=== PATIENT | female | born 1930 | race Caucasian/White ===

== ENCOUNTER 2020-11-10 10:50 | Emergency (ER) | payer OTHER, MEDICARE | END 2020-11-10 14:15 | disposition home or self-care (01) | LOC: ERS 10:50 | DX: S52.502A Unspecified fracture of the lower end of left radius, initial encounter for closed fracture (principal); W01.0XXA Fall on same level from slipping, tripping and stumbling without subsequent striking against object, initial encounter; F03.90 Unspecified dementia, unspecified severity, without behavioral disturbance, psychotic disturbance, mood disturbance, and anxiety; Y92.129 Unspecified place in nursing home as the place of occurrence of the external cause; Z79.1 Long term (current) use of non-steroidal anti-inflammatories (NSAID); Z79.899 Other long term (current) drug therapy ==

== ENCOUNTER 2020-11-25 20:58 | Inpatient (IN) | payer OTHER, MEDICARE, BC ==
[2020-11-25] MEDS ORDERED: Morphine 4 MG/ML VIAL ONE (21:50)
[2020-11-25 23:35] LABS: #Eosinphils 0.2 thou/uL (0.0-0.7); #Lymphocytes 1.1 thou/uL (1.20-3.40); #Monocytes 0.9 thou/uL (0.11-0.59); #Neutrophils 12.7 thou/uL (1.40-6.50); %Basophils 0.2 % (0.0-1.0); %Eosinophils 1.6 % (0.0-10.0); %Lymphocytes 7.2 % (21.0-51.0); %Neutrophils 85.1 % (42.0-75.0); Hemoglobin 8.3 g/dL (12.0-16.0); Mean Corpuscular HGB CONC 32.6 g/dL (32.0-36.0); Mean Corpuscular Hemoglobin 31.6 pg (27.0-31.0); Mean Corpuscular Volume 96.9 fL (78.0-98.0); Mean Platelet Volume 7.4 fL (7.4-10.4); Platelet Count 259 thou/uL (130-400); RBC Distribution Width 15.1 % (11.5-14.5); Red Blood Cell (RBC) Count 2.64 mill/uL (4.20-5.40); White Blood Cell (WBC) Count 14.9 thou/uL (4.8-10.8)
[2020-11-25 23:59] LABS: INR-International Normal Ratio 1.2; Prothrombin Time 15.1 sec (12.0-14.7)
[2020-11-26] LABS: PTT 33.3 sec (22.9-36.1)
[2020-11-26 00:02] LABS: ALT (SGPT) 11 U/L (8-55); AST (SGOT) 20 U/L (5-34); Albumin 3.3 g/dL (3.4-4.8); Alkaline Phosphatase 84 U/L (40-110); Anion Gap 13 mmol/L (10-20); BUN (Urea Nitrogen) 18 mg/dL (9.8-20.1); Bilirubin, Total 0.7 mg/dL (0.2-1.2); Calc. Creatinine Clearance 0 mL/min (70-130); Carbon Dioxide 29 mmol/L (23-31); Chloride 103 mmol/L (98-107); Glucose 132 mg/dL (83-110); Potassium 3.8 mmol/L (3.5-5.1); Protein, Total 6.3 g/dL (5.8-8.1); Sodium 141 mmol/L (136-145)
[2020-11-26] MEDS ORDERED: Cyclobenzaprine 10 MG TAB PO PRN (00:23)
[2020-11-26] MEDS ORDERED: traMADol HCl 50 MG TAB PO PRN (00:23)
[2020-11-26] MEDS ORDERED: Dextrose 5% in Water 1,000 ML IV PRN (00:26)
[2020-11-26] MEDS ORDERED: Dextrose 50% Abboject 50 ML SYRINGE SLOW IVP PRN (00:26)
[2020-11-26] MEDS ORDERED: Ondansetron PF 4 MG/2 ML Vial IVP PRN (00:26)
[2020-11-26] MEDS ORDERED: hydrALAZINE 20 MG/ML VIAL SLOW IVP PRN (00:26)
[2020-11-26] MEDS ORDERED: Sodium Chloride 0.9% 1,000 ML IV SCH (00:30)
[2020-11-26 00:38] LABS: SARS-CoV-2 NAA Rapid Test Not Detected (NotDetected)
[2020-11-26 06:08] LABS: #Eosinphils 0.1 thou/uL (0.0-0.7); #Lymphocytes 1.2 thou/uL (1.20-3.40); #Monocytes 0.8 thou/uL (0.11-0.59); #Neutrophils 8.2 thou/uL (1.40-6.50); %Basophils 0.1 % (0.0-1.0); %Eosinophils 0.8 % (0.0-10.0); %Lymphocytes 11.2 % (21.0-51.0); %Monocytes 7.5 % (0.0-10.0); %Neutrophils 80.3 % (42.0-75.0); Hemoglobin 8.2 g/dL (12.0-16.0); Mean Corpuscular HGB CONC 32.8 g/dL (32.0-36.0); Mean Corpuscular Volume 97.4 fL (78.0-98.0); Mean Platelet Volume 7.5 fL (7.4-10.4); Platelet Count 230 thou/uL (130-400); RBC Distribution Width 15.1 % (11.5-14.5); Red Blood Cell (RBC) Count 2.56 mill/uL (4.20-5.40); White Blood Cell (WBC) Count 10.2 thou/uL (4.8-10.8)
[2020-11-26] MEDS: traMADol HCl 50 MG TAB PO SCH ×3 (06:10→17:44)
[2020-11-26] MEDS: Acetaminophen 325 MG TAB PO SCH ×3 (06:10→17:44)
[2020-11-26 06:27] LABS: Anion Gap 11 mmol/L (10-20); BUN (Urea Nitrogen) 17 mg/dL (9.8-20.1); Calc. Creatinine Clearance 0 mL/min (70-130); Calcium 8.8 mg/dL (7.8-10.44); Carbon Dioxide 30 mmol/L (23-31); Chloride 104 mmol/L (98-107); Glucose 133 mg/dL (83-110); Sodium 141 mmol/L (136-145)
[2020-11-26] MEDS ORDERED: Famotidine/PF 20 mg/2ml Vial SLOW IVP SCH (09:00)
[2020-11-26] MEDS: Polyethylene Glycol 3350 17 GM Packet PO SCH (09:19)
[2020-11-26] MEDS: Senokot S 8.6-50 MG TAB PO SCH ×2 (09:20→22:12)
[2020-11-26] MEDS ORDERED: CEFAZOLIN 2 GM in Premix Bag 1 BAG IVPB SCH (09:30)
[2020-11-26] MEDS: Morphine 2 MG/ML VIAL SLOW IVP PRN ×2 (10:34→14:37)
[2020-11-26] MEDS ORDERED: Lorazepam 0.5 MG TAB PO PRN (16:47)
[2020-11-26] MEDS ORDERED: Cepastat Lozenges 1 LOZ PO PRN (17:12)
[2020-11-26] MEDS ORDERED: Phenylephrine 10 MG/ML VIAL ONE (18:42)
[2020-11-26] MEDS ORDERED: Lidocaine 2% Jelly 5 ML TUBE ONE (18:42)
[2020-11-26] MEDS ORDERED: Fentanyl 100 MCG/2 ML VIAL ONE (18:42)
[2020-11-26] MEDS ORDERED: PHENYLEPHRINE-NS 100 MCG/ML 10 ML SYRINGE ONE (19:16)
[2020-11-26] MEDS ORDERED: Dexamethasone 20 MG/5 ML VIAL ONE (19:16)
[2020-11-26] MEDS ORDERED: Ondansetron PF 4 MG/2 ML Vial ONE (19:16)
[2020-11-26] MEDS ORDERED: PROPOFOL 200 MG/20 ML VIAL ONE (19:16)
[2020-11-26] MEDS ORDERED: Lidocaine 1% PF 5 ML VIAL ONE (19:16)
[2020-11-26] MEDS ORDERED: Ondansetron HCl/PF 4 MG/2 ML Vial IVP PRN (19:38)
[2020-11-26] MEDS ORDERED: PACU-Morphine 4MG/ML VIAL SLOW IVP PRN (19:38)
[2020-11-26] MEDS ORDERED: Promethazine HCl 25 MG/ML VIAL IM PRN (19:38)
[2020-11-26] MEDS ORDERED: Promethazine HCl 25 MG/ML VIAL IVPB PRN (19:38)
[2020-11-27] MEDS: Acetaminophen 325 MG TAB PO SCH ×4 (01:20→18:47)
[2020-11-27] MEDS: traMADol HCl 50 MG TAB PO SCH ×4 (01:20→18:47)
[2020-11-27] MEDS: ceFAZolin Sodium/D5W 2 GM in Premix Bag 1 BAG IVPB SCH ×2 (01:25→08:56)
[2020-11-27 07:24] LABS: #Lymphocytes 0.8 thou/uL (1.20-3.40); #Monocytes 0.6 thou/uL (0.11-0.59); #Neutrophils 7.4 thou/uL (1.40-6.50); %Basophils 0.2 % (0.0-1.0); %Eosinophils 0.1 % (0.0-10.0); %Lymphocytes 8.6 % (21.0-51.0); %Monocytes 7.1 % (0.0-10.0); Hemoglobin 7.1 g/dL (12.0-16.0); Mean Corpuscular HGB CONC 32.4 g/dL (32.0-36.0); Mean Corpuscular Hemoglobin 31.8 pg (27.0-31.0); Mean Platelet Volume 8.3 fL (7.4-10.4); Platelet Count 189 thou/uL (130-400); RBC Distribution Width 14.9 % (11.5-14.5); Red Blood Cell (RBC) Count 2.24 mill/uL (4.20-5.40); White Blood Cell (WBC) Count 8.8 thou/uL (4.8-10.8)
[2020-11-27 07:49] LABS: Anion Gap 11 mmol/L (10-20); BUN (Urea Nitrogen) 21 mg/dL (9.8-20.1); Calc. Creatinine Clearance 0 mL/min (70-130); Calcium 8.2 mg/dL (7.8-10.44); Carbon Dioxide 29 mmol/L (23-31); Chloride 108 mmol/L (98-107); Glucose 129 mg/dL (83-110); Magnesium 2.3 mg/dL (1.6-2.6); Phosphorus 4.7 mg/dL (2.3-4.7); Potassium 4.4 mmol/L (3.5-5.1); Sodium 144 mmol/L (136-145)
[2020-11-27] MEDS: Ascorbic Acid 500 mg Chewable Tablet PO SCH ×2 (08:59→22:44)
[2020-11-27] MEDS: Ferrous Sulfate 325 MG TAB PO SCH ×2 (08:59→22:44)
[2020-11-27] MEDS: Senokot S 8.6-50 MG TAB PO SCH ×2 (09:04→22:44)
[2020-11-27] MEDS: Citalopram 20 MG TAB PO SCH (09:04)
[2020-11-27] MEDS: Polyethylene Glycol 3350 17 GM Packet PO SCH (09:04)
[2020-11-28] MEDS: Acetaminophen 325 MG TAB PO SCH ×4 (01:36→18:15)
[2020-11-28] MEDS: traMADol HCl 50 MG TAB PO SCH ×4 (01:38→18:17)
[2020-11-28 06:29] LABS: #Eosinphils 0.1 thou/uL (0.0-0.7); #Lymphocytes 1.5 thou/uL (1.20-3.40); #Neutrophils 7.5 thou/uL (1.40-6.50); %Basophils 0.1 % (0.0-1.0); %Monocytes 9.5 % (0.0-10.0); %Neutrophils 74.4 % (42.0-75.0); Hemoglobin 7.8 g/dL (12.0-16.0); Mean Corpuscular HGB CONC 32.6 g/dL (32.0-36.0); Mean Corpuscular Hemoglobin 31.3 pg (27.0-31.0); Mean Corpuscular Volume 95.9 fL (78.0-98.0); Platelet Count 168 thou/uL (130-400); Red Blood Cell (RBC) Count 2.48 mill/uL (4.20-5.40)
[2020-11-28 06:53] LABS: Anion Gap 10 mmol/L (10-20); BUN (Urea Nitrogen) 36 mg/dL (9.8-20.1); Calc. Creatinine Clearance 0 mL/min (70-130); Calcium 8.2 mg/dL (7.8-10.44); Carbon Dioxide 28 mmol/L (23-31); Chloride 105 mmol/L (98-107); Glucose 106 mg/dL (83-110); Magnesium 2.5 mg/dL (1.6-2.6); Phosphorus 4.1 mg/dL (2.3-4.7); Potassium 3.8 mmol/L (3.5-5.1); Sodium 139 mmol/L (136-145)
[2020-11-28] MEDS: Polyethylene Glycol 3350 17 GM Packet PO SCH (09:15)
[2020-11-28] MEDS: Ferrous Sulfate 325 MG TAB PO SCH ×2 (09:16→21:23)
[2020-11-28] MEDS: Aspirin 81 mg Enteric Coated Tablet PO SCH ×2 (09:16→21:23)
[2020-11-28] MEDS: Ascorbic Acid 500 mg Chewable Tablet PO SCH ×2 (09:16→21:23)
[2020-11-28] MEDS: Citalopram 20 MG TAB PO SCH (09:16)
[2020-11-28] MEDS: Senokot S 8.6-50 MG TAB PO SCH ×2 (09:16→21:23)
[2020-11-28] MEDS: Lactated Ringer's 1,000 ML IV SCH ×2 (09:16→21:28)
[2020-11-28] MEDS: Gabapentin 100 MG CAP PO SCH ×2 (14:52→21:23)
[2020-11-28 20:03] VITALS: BP 112/62; TEMP 97.6
[2020-11-29] MEDS ORDERED: FLU VACC QS2021-22(65YR UP)/PF 240 MCG/0.7 ML SYRINGE IM ONE (21:00)
== END 2020-11-28 21:34 | DRG 481 ==
LOC: ERS 20:58 → SURG B 11-26 00:20
PROVIDERS: ADMIT Surgery; ATTEND Surgery
PROC: 0QH736Z Insertion of Intramedullary Internal Fixation Device into Left Upper Femur, Percutaneous Approach (ICD-10-PCS; principal; 2020-11-26)
PROC: 30233N1 Transfusion of Nonautologous Red Blood Cells into Peripheral Vein, Percutaneous Approach (ICD-10-PCS; 2020-11-27)
DX: S72.142A Displaced intertrochanteric fracture of left femur, initial encounter for closed fracture (principal); I48.21 Permanent atrial fibrillation; D62 Acute posthemorrhagic anemia; N17.9 Acute kidney failure, unspecified; Z20.822 Contact with and (suspected) exposure to COVID-19; W01.0XXA Fall on same level from slipping, tripping and stumbling without subsequent striking against object, initial encounter; G30.9 Alzheimer's disease, unspecified; F02.80 Dementia in other diseases classified elsewhere, unspecified severity, without behavioral disturbance, psychotic disturbance, mood disturbance, and anxiety; I50.9 Heart failure, unspecified; I25.10 Atherosclerotic heart disease of native coronary artery without angina pectoris; E78.5 Hyperlipidemia, unspecified; I11.0 Hypertensive heart disease with heart failure; Z79.899 Other long term (current) drug therapy; Z95.1 Presence of aortocoronary bypass graft
CPT/HCPCS: 36415; 36416; 36430; 70450; 71045; 72125; 72170; 76000; 80048; 80053; 83735; 84100; 85025; 85610; 85730; 86850; 86900; 86901; 93005; 93306; 96374; C1713; G0390; J1100; J2270; J2370; J2405; J2704; J3010; J7050; J7120; P9016; S0028; U0002